=== PATIENT | male | born 1995 | race Caucasian/White ===

== ENCOUNTER 2019-02-08 18:41 | Emergency (ER) | payer MEDICAID ==
--- NOTE | 2019-02-08 18:54 | Emergency Department Record ---
History of Present Illness - General Chief complaint: ENT Stated complaint: FEELS LIKE LUMP IN THROAT/CANT EAT Time Seen by Provider: 02/08/19 18:42 Source: Patient Mode of Arrival: Ambulatory Limitations: No limitations - History of Present Illness Initial comments: 23 yo male presents to ED for evaluation of painful swallowing following a painful ingestion of square pizza 4 days ago. Patient reports injury occurred while eating the pizza, has seen his PCP who prescribed intermittent use of oral lidocaine as needed. Patient denies any ingestion of food with bones, and reports that he is able to tolerate fluids without vomiting. Patient denies fevers, chills, or recent illness. Patient denies health problems at his baseline. MD complaint: Difficulty swallowing Onset/Timin -: Days(s) Location: Throat Severity: Moderate Severity scale (1-10): 3 Quality: Aching Consistency: Intermittent Worsens with: Eating Associated Symptoms: Pain with swallowing, Sore throat - Related Data Home Medications Medication Instructions Recorded Confirmed Last Taken Albuterol Sulfate [Proair Hfa] 1 - 2 puff IH .EVERY 4-6 HOURS PRN 02/08/19 02/08/19 1 Day Ago ~02/07/19 Cetirizine HCl [Zyrtec] 10 mg PO DAILY 02/08/19 02/08/19 1 Day Ago ~02/07/19 Famotidine [Pepcid] 40 mg PO DAILY 02/08/19 02/08/19 1 Day Ago ~02/07/19 Montelukast Sodium [Singulair] 10 mg PO DAILY 02/08/19 02/08/19 1 Day Ago ~02/07/19 Previous Rx's Medication Instructions Recorded Lidocaine HCl [Lidocaine HCl 15 ml MM QID #28 solution 02/08/19 Viscous] Allergies Allergy/AdvReac Type Severity Reaction Status Date / Time amoxicillin Allergy SWELLING Verified 02/08/19 18:53 OF THE TONGUE Penicillins Allergy SWELLING Verified 02/08/19 18:53 OF THE TONGUE Travel Screening - Travel/Exposure Within Last 30 Days Have you traveled within the last 30 days?: No - Travel/Exposure Within Last Year Have you traveled outside the [place] in the last year?: No - Additonal Travel Details Have you been exposed to anyone with a communicable illness?: No - Travel Symptoms Symptom Screening: None Review of Systems Constitutional: Denies: Chills, Fever, Malaise, Night sweats Eyes: Denies: Eye discharge, Eye pain ENT: Reports: Throat pain. Denies: Congestion, Ear pain, Epistaxis Respiratory: Denies: Cough, Dyspnea Cardiovascular: Denies: Chest pain, Dyspnea on exertion Endocrine: Denies: Fatigue, Heat or cold intolerance Gastrointestinal: Denies: Abdominal pain, Nausea, Vomiting Genitourinary: Denies: Incontinence, Retention Musculoskeletal: Denies: Arthralgia, Back pain Skin: Denies: Bruising, Change in color Neurological: Denies: Abnormal gait, Confusion, Headache, Seizure Psychiatric: Denies: Anxiety Hematological/Lymphatic: Denies: Anemia, Blood Clots Past Medical History - SOCIAL HISTORY Smoking Status: Never smoker Alcohol Use: None Drug Use: None - RESPIRATORY Hx Respiratory Disorders: Yes Hx Asthma: Yes - CARDIOVASCULAR Hx Cardio Disorders: No - NEURO Hx Neuro Disorders: No - GI Hx GI Disorders: Yes Hx Reflux: Yes - ENDOCRINE Hx Endocrine Disorders: No - MUSCULOSKELETAL Hx Musculoskeletal Disorders: No - PSYCH Hx Psych Problems: No - HEMATOLOGY/ONCOLOGY Hx Hematology/Oncology Disorders: No Family Medical History Any Significant Family History?: Yes Physical Exam - General General Appearance: Alert, Oriented x3, Cooperative, No acute distress Limitations: No limitations - Head Head exam: Atraumatic, Normocephalic, Normal inspection Head exam detail: negative: Abrasion, Contusion, Goodrich's sign, General tenderness, Hematoma, Laceration - Eye Eye exam: Normal appearance. negative: Conjunctival injection, Periorbital swelling, Periorbital tenderness, Scleral icterus - ENT Ear exam: negative: Auricular hematoma, Auricular trauma Nasal Exam: negative: Active bleeding, Discharge, Dried blood, Foreign body Mouth exam: negative: Drooling, Laceration, Muffled voice, Tongue elevation Throat exam: negative: Tonsillar erythema, Tonsillomegaly, R peritonsillar mass, L peritonsillar mass - Neck Neck exam: Normal inspection. negative: Meningismus, Tenderness - Respiratory Respiratory exam: Normal lung sounds bilaterally. negative: Rales, Respiratory distress, Rhonchi, Stridor - Cardiovascular Cardiovascular Exam: Regular rate, Normal rhythm, Normal heart sounds - GI/Abdominal GI/Abdominal exam: Soft. negative: Rebound, Rigid, Tenderness - Rectal Rectal exam: Deferred - exam: Deferred - Extremities Extremities exam: Normal inspection. negative: Pedal edema, Tenderness - Back Back exam: Denies: CVA tenderness (R), CVA tenderness (L) - Neurological Neurological exam: Alert, Normal gait, Oriented X3 - Psychiatric Psychiatric exam: Normal affect, Normal mood - Skin Skin exam: Normal color. negative: Abrasion Type of lesion: negative: abrasion Course Vital Signs 02/08/19 18:43 Temperature 98.8 F Pulse Rate 110 H Respiratory 18 Rate Blood Pressure 139/94 Pulse Ox 98 - Reevaluation(s) Reevaluation #1: 02/08/19 18:59 Patient was seen and examined No evidence for ingested FB or esophageal FB on examination. Patient was instructed that symptoms are likely the result of esophageal injury, recommended continued use of viscous lidocaine with instructions to follow-up with her PCP for re-evaluation and GI referral if symptoms fail to improve in 3- 5 days. Patient is otherwise well appearing and stable for discharge at this time. Disposition Disposition: Discharge Clinical Impression: Dysphagia Qualifiers: Dysphagia type: esophageal phase Qualified Code(s): R13.10 - Dysphagia, unspecified Disposition: Home, Self-Care Condition: (2) Stable Instructions: Dysphagia (ED) Additional Instructions: Return to ED if your symptoms worsen or if you have any concerns. Viscous lidocaine as directed. Follow-up with Izzy Garcia in 3-5 days as directed. Prescriptions: Lidocaine HCl [Lidocaine HCl Viscous] 15 ml MM QID #28 solution Forms: Patient Portal Access Time of Disposition: 18:53 Quality - Quality Measures Quality Measures: N/A - Blood Pressure Screening Does Patient Have Any of the Following: No Blood Pressure Classification: Hypertensive Reading Systolic Measurement: 139 Diastolic Measurement: 94 Screening for High Blood Pressure: < First Hypertensive BP, F/U Documented > [[id number]] First Hypertensive Follow-up Interventions: Referral to alternative/primary care provider.
== END 2019-02-08 19:05 | disposition home or self-care (01) ==
LOC: ER 18:41
DX: R13.10 Dysphagia, unspecified (principal)
CPT/HCPCS: 99283